=== PATIENT | female | born 1955 | race Caucasian/White ===

== ENCOUNTER 2017-03-25 10:41 | Emergency (ER) | payer OTHER ==
[2017-03-25 12:37] LABS: HEMOGLOBIN 14.6 gm/dl (12.3-15.3); RED BLOOD COUNT 4.57 M/UL (4.00-5.10); WHITE BLOOD COUNT 11.2 K/UL (4.5-11.0)
[2017-03-25 13:13] LABS: BUN/CREATININE RATIO 17 (0-10)
== END 2017-03-25 16:55 | disposition home or self-care (01) ==
LOC: ER1 10:41
PROVIDERS: Specialist/Technologist Athletic Trainer
DX: J20.9 Acute bronchitis, unspecified (principal); J43.9 Emphysema, unspecified; R91.1 Solitary pulmonary nodule; F17.200 Nicotine dependence, unspecified, uncomplicated; Z88.2 Allergy status to sulfonamides; Z88.5 Allergy status to narcotic agent
CPT/HCPCS: 36415; 71010; 71250; 72128; 73030; 80053; 82550; 82553; 83874; 84484; 85025; 93005; 96374; 99285; J2270